=== PATIENT | male | born 2000 | race Two or more races ===

== ENCOUNTER 2021-03-08 19:23 | Emergency (ER) | payer SELFPAY ==
[~2021-03-08] VITALS: Ht 165.1 cm; Wt 59.0 kg
[2021-03-08] MEDS ORDERED: IBUPROFEN 800 MG TABLET PO ONE (20:00)
[2021-03-08] MEDS ORDERED: IBUPROFEN 800 MG TABLET ONE (20:01)
--- NOTE | 2021-03-08 20:02 | NUR ---
Patient out of unit for x ray via wheelchair.
--- NOTE | 2021-03-08 20:10 | NUR ---
Patient back from x ray via wheelchair with no distress noted.
[2021-03-08] MEDS ORDERED: IBUP-1955 PO (20:45)
--- NOTE | 2021-03-08 20:46 | NUR ---
Patient discharged to home in stable condition. Written and verbal after care instructions given. Patient verbalizes understanding of instructions. Stressed follow up or return to ER for worsening s/s.PT WALKS IN STEADY GAIT.
== END 2021-03-08 20:48 | disposition home or self-care (01) ==
LOC: ER 19:26
DX: S09.90XA Unspecified injury of head, initial encounter (principal); S13.4XXA Sprain of ligaments of cervical spine, initial encounter; V49.40XA Driver injured in collision with unspecified motor vehicles in traffic accident, initial encounter; Y92.410 Unspecified street and highway as the place of occurrence of the external cause
CPT/HCPCS: A4663

== ENCOUNTER 2023-04-08 03:05 | Emergency (ER) | payer MEDICAID, OTHER ==
[~2023-04-08] VITALS: Ht 172.7 cm; Wt 62.6 kg
[~2023-04-08 03:05] MED LIST: IBUP-1955 PO
[2023-04-08] MEDS ORDERED: LIDOCAINE 1%-EPI 1:100,000 20 ML VIAL ONE (03:41)
[2023-04-08] MEDS ORDERED: SODIUM BICARBONATE 4.2 % (NEUT) 5 ML VIAL ONE (03:41)
[2023-04-08] MEDS ORDERED: LIDOCAINE 1%-EPI 1:100,000 20 ML VIAL IJ ONE (03:45)
[2023-04-08] MEDS ORDERED: SODIUM BICARBONATE 4.2 % (NEUT) 5 ML VIAL TP ONE (03:45)
[2023-04-08 04:23] VITALS: BP 120/72; TEMP 98.4; O2SAT 99
== END 2023-04-08 04:24 | disposition home or self-care (01) ==
LOC: ER 03:12
DX: S01.01XA Laceration without foreign body of scalp, initial encounter (principal); F10.129 Alcohol abuse with intoxication, unspecified; F17.210 Nicotine dependence, cigarettes, uncomplicated; Z79.1 Long term (current) use of non-steroidal anti-inflammatories (NSAID); W26.8XXA Contact with other sharp object(s), not elsewhere classified, initial encounter; Y93.89 Activity, other specified; Y92.89 Other specified places as the place of occurrence of the external cause; Y99.8 Other external cause status; Y90.9 Presence of alcohol in blood, level not specified
CPT/HCPCS: 12001; 99282; J3490; A4606; A4663